=== PATIENT | female | born 1965 | race African-American/Black ===

== ENCOUNTER 2017-12-13 11:32 | Emergency (ER) | payer MEDICAID, OTHER ==
[~2017-12-13] VITALS: Ht 167.6 cm; Wt 87.0 kg
[2017-12-13] MEDS ORDERED: IBUPROFEN 600MG TABLET PO ONE (13:00)
[2017-12-13 14:14] VITALS: BP 138/90
== END 2017-12-13 14:17 | disposition home or self-care (01) ==
LOC: ER 12:12
DX: M54.6 Pain in thoracic spine (principal); I10 Essential (primary) hypertension
CPT/HCPCS: 72070; 99284

== ENCOUNTER 2019-12-02 06:39 | Emergency (ER) | payer OTHER ==
[~2019-12-02] VITALS: Ht 165.1 cm; Wt 90.0 kg
[2019-12-02 09:11] VITALS: BP 144/84
== END 2019-12-02 09:12 | disposition home or self-care (01) ==
LOC: ER 06:39
DX: S92.512A Displaced fracture of proximal phalanx of left lesser toe(s), initial encounter for closed fracture (principal); W22.8XXA Striking against or struck by other objects, initial encounter; Y93.89 Activity, other specified; Y92.038 Other place in apartment as the place of occurrence of the external cause; I10 Essential (primary) hypertension; E05.90 Thyrotoxicosis, unspecified without thyrotoxic crisis or storm
CPT/HCPCS: 73630; 99283

== ENCOUNTER 2021-01-21 17:05 | Emergency (ER) | payer OTHER ==
[~2021-01-21] VITALS: Ht 165.1 cm; Wt 85.0 kg
[2021-01-21 18:43] LABS: BASOPHILS % 1.1 % (0.0-2.0); EOSINOPHILS % 2.5 % (0.0-5.0); HEMATOCRIT. 45.1 % (36.0-48.0); HEMOGLOBIN. 14.7 g/dL (12.0-16.0); MEAN CORPUSCULAR VOLUME 85.8 fL (81.0-99.0); MEAN PLATELET VOLUME 9.8 fl (7.4-10.4); MONOCYTES % 6.9 % (2.0-8.0); NEUTROPHILS % 46.5 % (40.0-76.0); PLATELET 183 x1000/uL (130-400); RED BLOOD CELL COUNT 5.25 mill/uL (4.2-5.4)
[2021-01-21 19:01] LABS: CHLORIDE 108 mEq/L (98-107)
[2021-01-22] MEDS ORDERED: ASPIRIN 325MG TABLET PO ONE (00:30)
[2021-01-22 05:15] VITALS: BP 130/65
== END 2021-01-22 05:44 | disposition short-term general hospital (02) ==
LOC: ER 17:05 → CANBEDREQ 01-22 04:05 → ER 01-22 05:44
DX: R07.89 Other chest pain (principal); R94.31 Abnormal electrocardiogram [ECG] [EKG]; I10 Essential (primary) hypertension; E11.9 Type 2 diabetes mellitus without complications; E78.00 Pure hypercholesterolemia, unspecified; Z88.1 Allergy status to other antibiotic agents; Z88.0 Allergy status to penicillin; Z88.2 Allergy status to sulfonamides
CPT/HCPCS: 36415; 71045; 80053; 83880; 84484; 85025; 93005; 99285

== ENCOUNTER 2024-09-12 09:53 | Inpatient (IN) | payer OTHER ==
[~2024-09-12] VITALS: Ht 165.1 cm; Wt 81.4 kg
[2024-09-12 11:02] LABS: BASOPHILS % 0.5 % (0.0-2.0); EOSINOPHILS % 1.1 % (0.0-5.0); HEMOGLOBIN. 13.6 g/dL (12.0-16.0); LYMPHOCYTES % 23.4 % (20.0-50.0); MEAN CORPUSCULAR HEMOGLOBIN 27.8 pg (28.0-32.0); MEAN CORPUSCULAR VOLUME 81.8 fL (81.0-99.0); MEAN PLATELET VOLUME 8.8 fl (7.4-10.4); MONOCYTES % 7.9 % (2.0-8.0); NEUTROPHILS % 67.1 % (40.0-76.0); PLATELET 198 x1000/uL (130-400); RED BLOOD CELL COUNT 4.89 mill/uL (4.2-5.4); RED CELL DISTRIBUTION WIDTH 13.9 % (11.6-14.6)
[2024-09-12 11:10] LABS: CARBON DIOXIDE 27 mEq/L (21-32); CHLORIDE 103 mEq/L (98-107); SODIUM 137 mEq/L (136-145)
[2024-09-12 11:11] LABS: CALCIUM 9.5 mg/dL (8.7-10.4)
[2024-09-12 11:15] LABS: CREATININE 0.9 mg/dL (0.6-1.0); GLUCOSE 109 mg/dL (70-105)
[2024-09-12 11:16] LABS: UREA NITROGEN BLOOD 9 mg/dL (9-23)
[2024-09-12 11:17] LABS: ALANINE AMINOTRANSFERASE 33 IU/L (10-49); ALBUMIN 4.5 g/dL (3.2-4.8); ASPARTATE AMINOTRANSFERASE 28 IU/L (<34)
[2024-09-12 11:18] LABS: BILIRUBIN DIRECT 0.2 mg/dL (<=3.0); BILIRUBIN TOTAL 0.9 mg/dL (0.1-1.0); PROTEIN TOTAL 7.1 g/dL (6.0-8.3)
[2024-09-12 11:19] LABS: CLARITY URINE CLEAR (CLEAR); COLOR URINE YELLOW (YELLOW); GLUCOSE URINE NEGATIVE (NEGATIVE); KETONES URINE NEGATIVE (NEGATIVE); LEUKOCYTE ESTERASE URINE NEGATIVE (NEGATIVE); NITRITE URINE NEGATIVE (NEGATIVE); OCCULT BLOOD URINE NEGATIVE (NEGATIVE); PROTEIN URINE NEGATIVE (NEGATIVE); SPECIFIC GRAVITY URINE 1.001 (1.005-1.030); UROBILINOGEN URINE 0.2 E.U./dL (0.2-1.0)
[2024-09-12] MEDS: SODIUM CHLORIDE 0.9% 1,000 ML IV ONE (11:25)
[2024-09-12 11:28] LABS: TROPONIN I HIGH SENSITIVITY < 4 ng/L (3.0-34)
[2024-09-12 11:29] LABS: POTASSIUM 2.7 mEq/L (3.5-5.1)
[2024-09-12] MEDS: KCL 10MEQ/50ML PREMIX 50 ML IV STA (12:22)
[2024-09-12] MEDS: POTASSIUM CHLORIDE 20MEQ TABLET SR PO ONE (12:23)
[2024-09-12 13:21] LABS: TROPONIN I HIGH SENSITIVITY < 4 ng/L (3.0-34)
[2024-09-12] MEDS ORDERED: DEXTROSE 50% WATER 50ML SYRINGE IV PRN (16:30)
[2024-09-12] MEDS ORDERED: IPRATROPIUM/ALBUTEROL 0.5-3(2.5)MG/3ML NEB HHN PRN (16:30)
[2024-09-12] MEDS ORDERED: GUAIFENESIN 200MG/10ML SUGAR FREE UDC PO PRN (16:30)
[2024-09-12] MEDS ORDERED: DOCUSATE SODIUM 100MG CAPSULE PO PRN (16:30)
[2024-09-12] MEDS ORDERED: ACETAMINOPHEN 325MG TABLET PO PRN (16:30)
[2024-09-12] MEDS ORDERED: MAGNESIUM/ALUMINUM HYDROXIDE/SIMETHICONE 30ML UDC PO PRN (16:30)
[2024-09-12] MEDS ORDERED: CLONIDINE 0.1MG TABLET PO PRN (16:30)
[2024-09-12] MEDS ORDERED: ONDANSETRON HCL 4MG/2ML INJ IV PRN (16:30)
[2024-09-12] MEDS ORDERED: LEVO75TA7 PO (16:41)
[2024-09-12] MEDS ORDERED: ATOR20TA65 PO (16:41)
[2024-09-12] MEDS ORDERED: AMLO10TA80 PO (16:41)
[2024-09-12] MEDS ORDERED: MELO-104 PO (16:41)
[2024-09-12] MEDS ORDERED: POTASSIUM CHLORIDE 40 MEQ in DEXT 5% WATER 230 ML IV ONE (16:45)
[2024-09-12] MEDS ORDERED: KCL 20MEQ/100ML X 2 FOR TOTAL KCL 40MEQ/200ML IV SCH (17:00)
[2024-09-12 17:28] LABS: PHOSPHORUS 2.6 mg/dL (2.5-4.9)
[2024-09-12 18:39] VITALS: BP 132/83; PULSE 86; RESP 18; TEMP 37
[2024-09-12] MEDS ORDERED: ALBU4TAB6 MT (18:51)
[2024-09-12] MEDS ORDERED: BUDE6HFA INH (18:51)
[2024-09-12 20:00] VITALS: BP 148/85; PULSE 82; RESP 20; TEMP 37.1; O2SAT 100
[2024-09-12] MEDS: FAMOTIDINE 20MG TABLET PO SCH (21:13)
[2024-09-12] MEDS: ATORVASTATIN CALCIUM 20MG TABLET PO SCH (21:13)
[2024-09-12 21:41] LABS: POTASSIUM 3.5 mEq/L (3.5-5.1)
[2024-09-12 22:06] LABS: HEPATITIS B SURFACE ANTIGEN NEGATIVE (Negative)
[2024-09-12 22:27] LABS: HEPATITIS C AB NON REACTIVE (Neg) (Negative)
[2024-09-13] VITALS: BP 125/79; PULSE 72; RESP 18; TEMP 36.6; O2SAT 100
[2024-09-13 00:40] LABS: CREATINE KINASE 285 IU/L (34-145)
[2024-09-13 00:51] LABS: TROPONIN I HIGH SENSITIVITY < 4 ng/L (3.0-34)
[2024-09-13 04:00] VITALS: BP 129/75; PULSE 77; RESP 18; TEMP 36.6; O2SAT 100
[2024-09-13 06:01] LABS: BASOPHILS % 0.6 % (0.0-2.0); EOSINOPHILS % 3.1 % (0.0-5.0); HEMATOCRIT. 40.1 % (36.0-48.0); HEMOGLOBIN. 13.3 g/dL (12.0-16.0); LYMPHOCYTES % 33.5 % (20.0-50.0); MEAN CORPUSCULAR HEMOGLOBIN 27.3 pg (28.0-32.0); MEAN CORPUSCULAR HGB CONC 33.3 g/dL (31.0-37.0); MEAN PLATELET VOLUME 9.4 fl (7.4-10.4); NEUTROPHILS % 51.8 % (40.0-76.0); PLATELET 191 x1000/uL (130-400); RED BLOOD CELL COUNT 4.89 mill/uL (4.2-5.4); RED CELL DISTRIBUTION WIDTH 13.8 % (11.6-14.6); WHITE BLOOD COUNT 5.9 x1000/uL (4.5-11.0)
[2024-09-13 06:26] LABS: CARBON DIOXIDE 30 mEq/L (21-32); CHLORIDE 107 mEq/L (98-107); POTASSIUM 3.7 mEq/L (3.5-5.1); SODIUM 149 mEq/L (136-145)
[2024-09-13 06:27] LABS: CALCIUM 9.1 mg/dL (8.7-10.4)
[2024-09-13 06:32] LABS: CREATININE 0.8 mg/dL (0.6-1.0); GLUCOSE 94 mg/dL (70-105); TRIGLYCERIDE 66 mg/dL (0-150); UREA NITROGEN BLOOD 6 mg/dL (9-23)
[2024-09-13 06:33] LABS: CREATINE KINASE 246 IU/L (34-145); LDL CHOLESTEROL 80 mg/dL (5-100)
[2024-09-13 06:34] LABS: CHOLESTEROL 143 mg/dL (<200); HDL CHOLESTEROL 50 mg/dL (>65); T4 FREE 1.26 ng/dL (0.89-1.76); THYROID STIMULATING HORMONE 0.76 uIU/mL (0.55-4.78)
[2024-09-13 06:36] LABS: TROPONIN I HIGH SENSITIVITY < 4 ng/L (3.0-34)
[2024-09-13] MEDS: LEVOTHYROXINE SODIUM 75MCG TABLET PO SCH (06:42)
[2024-09-13 06:44] LABS: *AMPHETAMINES SCREEN URINE NEGATIVE (NEGATIVE)
[2024-09-13 06:46] LABS: *BARBITURATES SCREEN URINE NEGATIVE (NEGATIVE); *BENZODIAZEPINES SCREEN URINE NEGATIVE (NEGATIVE); *COCAINE SCREEN URINE NEGATIVE (NEGATIVE); CANNABINOID URINE SCREEN NEGATIVE (NEGATIVE); ECSTASY MDMA SCREEN URINE NEGATIVE (NEGATIVE); METHADONE URINE SCREEN NEGATIVE (NEGATIVE); OPIATES URINE SCREEN NEGATIVE (NEGATIVE); PHENCYCLIDINE URINE SCREEN NEGATIVE (NEGATIVE)
[2024-09-13 08:00] VITALS: BP 110/80; PULSE 78; RESP 18; TEMP 36.7; O2SAT 100
[2024-09-13] MEDS: AMLODIPINE 10MG TABLET PO SCH (09:59)
[2024-09-13 12:00] VITALS: BP 104/71; PULSE 73; RESP 16; TEMP 36.9; O2SAT 97
[2024-09-13 15:17] VITALS: BP 104/71; PULSE 73; TEMP 97; O2SAT 99
[2024-09-13 16:00] VITALS: BP 118/76; PULSE 83; RESP 20; TEMP 36.7; O2SAT 95
== END 2024-09-13 18:00 | disposition home or self-care (01) | DRG 425 ==
LOC: ER 09:53 → 7WST 13:14 → EDBEDREQ 13:15 → EDBEDREQTM 13:15 → ENRESERV 16:47
PROVIDERS: ADMIT Internal Medicine; ATTEND Internal Medicine
DX: E87.6 Hypokalemia (principal); E78.5 Hyperlipidemia, unspecified; I10 Essential (primary) hypertension; R73.9 Hyperglycemia, unspecified; M19.09 Primary osteoarthritis, other specified site; J44.89 Other specified chronic obstructive pulmonary disease; E89.0 Postprocedural hypothyroidism; Z79.51 Long term (current) use of inhaled steroids; Z88.0 Allergy status to penicillin; Z88.2 Allergy status to sulfonamides; Z88.1 Allergy status to other antibiotic agents
CPT/HCPCS: 36415; 71045; 80048; 80061; 80076; 80305; 81003; 82550; 83036; 83735; 84100; 84132; 84439; 84443; 84484; 85025; 86705; 87340; 93005; 94640; 97162; 99291; J3480; J7030